=== PATIENT | male | born 1985 | race Caucasian/White ===

== ENCOUNTER 2016-12-27 19:39 | Emergency (ER) | payer BC ==
[2016-12-27 20:03] VITALS: O2SAT 99
--- NOTE | 2016-12-27 20:34 | C.PDOC ---
History Of Present Illness 31 yr old male presents to the ER with complaints of pain around left posterior shoulder and left upper back pain for the past 3 days. Patient states certain movements and coughing make the pain worse. 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 Patient states he was sent to physical therapy by his PMD and he received massages and heat therapy which did not help. Also has tried Motrin with no relief. Patient states today he also developed a fever and took Motrin for it and the fever resolved. Patient denies trauma, chest pain, SOB, neck pain, weakness or numbness. Time Seen by Provider: 12/27/16 20:05 Chief Complaint (Nursing): Back Pain History Per: Patient History/Exam Limitations: no limitations Onset/Duration Of Symptoms: Days (3) Current Symptoms Are (Timing): Still Present Past Medical History Reviewed: Historical Data, Nursing Documentation, Vital Signs Vital Signs: Last Vital Signs Temp 98.1 F 12/27/16 22:37 Pulse 98 H 12/27/16 22:37 Resp 18 12/27/16 22:37 BP 123/78 12/27/16 22:37 Pulse Ox 99 12/27/16 22:37 - Medical History PMH: Gastritis (GERD) Family History: States: No Known Family Hx - Social History Hx Alcohol Use: No Hx Substance Use: No - Immunization History Hx Influenza Vaccination: No Review Of Systems Except As Marked, All Systems Reviewed And Found Negative. Cardiovascular: Negative for: Chest Pain Respiratory: Negative for: Shortness of Breath Musculoskeletal: Positive for: Shoulder Pain (Left shoulder ), Back Pain (Left upper back ). Negative for: Neck Pain Neurological: Negative for: Weakness, Numbness Physical Exam - Physical Exam Appears: Non-toxic, No Acute Distress Skin: Warm, Dry, No Rash Head: Atraumatic, Normacephalic Oral Mucosa: Moist Neck: Normal, Normal ROM, Supple Cardiovascular: Rhythm Regular, No Murmur Respiratory: Normal Breath Sounds, No Rales, No Rhonchi, No Stridor, No Wheezing Extremity: No Normal ROM (reproducable pain with movement of the left arm), No Tenderness, Capillary Refill (<2), No Deformity, No Swelling, Other (no erythema ) Pulses: Left Radial: Normal, Right Radial: Normal Neurological/Psych: Oriented x3, Normal Speech, Normal Motor, Normal Sensation ED Course And Treatment - Laboratory Results Result Diagrams: 12/27/16 20:59 12/27/16 20:59 O2 Sat by Pulse Oximetry: 99 (RA ) Pulse Ox Interpretation: Normal Progress Note: Patient was treated with IVF and Toradol IV. On re-evaluation patient feels better, has FROM in the left shoulder. Labs with elevated WBCs, neg DDimer, negative CXR and shoulder xray. Patient was evaluated by at bedside. agreed with the plan to d/c patient home with PMD follow up. Medical Decision Making Medical Decision Making: PLAN: * X-Ray - Left Shoulder * CXR * D-Dimer * CBC * CMP * Toradol IM * Sodium Chloride IV Disposition - Disposition Referrals: Goldy Bloom MD [Staff Provider] - Disposition: HOME/ ROUTINE Disposition Time: 22:23 Condition: STABLE Additional Instructions: Follow up with PMD and Orthopedist within 1-2 days. Return to Ed if feel worse. Prescriptions: Cyclobenzaprine [Cyclobenzaprine HCl] 10 mg PO TID #15 tab Lidocaine 4% [Lidocaine 4% 50 ml Topical (or)] 1 appl TOP QID #1 bottle Ibuprofen [Motrin Tab] 600 mg PO Q8 #30 tab Instructions: Back Pain (ED) Forms: [employer] (N[place]ian) - Clinical Impression Clinical Impression: Thoracic back pain - PA / [employer] / Resident Statement MD/DO has reviewed & agrees with the documentation as recorded. - Scribe Statement The provider has reviewed the documentation as recorded by the Scribe Taryn Patterson All medical record entries made by the Scribe were at my direction and personally dictated by me. I have reviewed the chart and agree that the record accurately reflects my personal performance of the history, physical exam, medical decision making, and the department course for this patient. I have also personally directed, reviewed, and agree with the discharge instructions and disposition.
[2016-12-27] MEDS ORDERED: Sodium Chloride 0.9% 1,000 ML IV STA (20:38)
[2016-12-27] MEDS ORDERED: Sodium Chloride 0.9% 1,000 ML ONE (20:47)
[2016-12-27 21:03] LABS: BASO # 0.1 K/uL (0.0-0.2); BASO % 0.4 % (0.0-2.0); EOS # 0.1 K/uL (0.0-0.7); EOS % 0.9 % (0.0-4.0); HEMATOCRIT 44.7 % (35.0-51.0); LYMPH # 2.4 K/uL (1.0-4.3); LYMPH % 18.3 % (20.0-40.0); MEAN CELL VOLUME 85.3 fL (80.0-94.0); MEAN CORPUSCULAR HEMOGLOBIN 28.9 pg (27.0-31.0); MEAN PLATELET VOLUME 7.6 fL (7.2-11.7); MONO # 1.2 K/uL (0.0-0.8); MONO % 8.7 % (0.0-10.0); NRBC % 0.1 % (0.0-2.0); WHITE BLOOD COUNT 13.4 K/uL (4.8-10.8)
[2016-12-27 21:12] LABS: CHLORIDE 100 mmol/L (98-107); SODIUM 139 mmol/L (132-148)
[2016-12-27 21:13] LABS: POTASSIUM 3.8 mmol/L (3.6-5.2)
[2016-12-27 21:14] LABS: GFR AFRICAN-AMERICAN > 60
[2016-12-27 21:15] LABS: ALB/GLOB RATIO 1.2 (1.0-2.1); ALKALINE PHOSPHATASE 86 U/L (38-126); ALT/SGPT 49 U/L (21-72); AST/SGOT 28 U/L (17-59); BLOOD UREA NITROGEN 11 mg/dL (9-20); CARBON DIOXIDE 27 mmol/L (22-30); GLUCOSE,RANDOM 97 mg/dL (75-110); TOTAL PROTEIN 7.8 g/dL (6.3-8.3)
[2016-12-27 21:16] LABS: CALCIUM 9.6 mg/dl (8.6-10.4)
[2016-12-27 22:38] VITALS: BP 123/78; PULSE 98; RESP 18; TEMP 98.1
--- NOTE | 2016-12-28 09:23 | RAD ---
PROCEDURE: Radiographs of the Left Shoulder HISTORY: pain, atraumatic COMPARISON: None available. FINDINGS: BONES: No acute displaced fracture. The distal clavicle and underlying ribs appear intact. JOINTS: No acute dislocation. SOFT TISSUES: Soft tissues appear unremarkable. No evidence of radiopaque foreign body. IMPRESSION: No acute displaced fracture or dislocation evident. If symptoms persist or if there is continued clinical concern, x-ray follow-up in 7-10 days should be considered.
--- NOTE | 2016-12-28 09:23 | RAD ---
HISTORY: atraumatic posterior pain COMPARISON: None available. TECHNIQUE: Chest PA and lateral FINDINGS: LUNGS: No focal consolidation. Please note that chest x-ray has limited sensitivity for the detection of pulmonary masses. PLEURA: No significant pleural effusion identified. No definite pneumothorax . CARDIOVASCULAR: The cardiomediastinal silhouette appears within normal limits of size. OSSEOUS STRUCTURES: No acute osseous abnormality identified. VISUALIZED UPPER ABDOMEN: Unremarkable. OTHER FINDINGS: None. IMPRESSION: No focal consolidation, significant pleural effusion, or definite pneumothorax identified.
== END 2016-12-27 22:37 | disposition home or self-care (01) ==
LOC: C.ER 19:39
DX: M54.6 Pain in thoracic spine (principal)
CPT/HCPCS: 71020; 73030; 80053; 85025; 85378; 96374; 99283; J1885; J7040